=== PATIENT | female | born 1960 | race Caucasian/White ===

== ENCOUNTER 2020-04-13 09:56 | Inpatient (IN) | payer SELFPAY ==
[~2020-04-13] VITALS: Ht 167.6 cm; Wt 67.6 kg
[2020-04-13 10:03] VITALS: BP 133/90
[2020-04-13 10:43] LABS: BASO # 0.1 10*3/uL (0.0-0.1); BASO % 0.3 % (0.0-1.0); EOS % 0.2 % (1.0-4.0); LYMPH # 2.6 10*3/uL (1.3-4.4); LYMPH % 14.3 % (27.0-41.0); MEAN CELL VOLUME 87.2 fl (81.0-99.0); MEAN CORPUSCULAR HGB 29.8 pg (27.0-31.0); MEAN CORPUSCULAR HGB CONC 34.1 g/dl (33.0-37.0); MEAN PLATELET VOLUME 8.3 fl (9.6-12.3); MONO # 0.9 10*3/uL (0.1-1.0); NEUT # 14.7 10*3/uL (2.3-7.9); NEUT % 79.7 % (47.0-73.0); PLATELET COUNT AUTOMATED 262 10*3/uL (130-400); RED CELL DISTRI WIDTH 12.7 % (0-14.5); WHITE BLOOD COUNT 18.4 10*3/uL (4.8-10.8)
[2020-04-13 10:54] LABS: ACT PARTIAL THROMBO TIME 26.5 SECONDS (20.0-32.1)
[2020-04-13 11:03] LABS: ALBUMIN 3.7 gm/dl (3.1-4.5); ALKALINE PHOSPHATASE 88 U/L (45-117); BUN 8 mg/dl (7-24); CHLORIDE 101 mmol/L (98-107); CREATININE 0.79 mg/dL (0.55-1.02); SGOT/AST 40 IU/L (3-35); SGPT/ALT 33 U/L (12-78); SODIUM 133 mmol/L (136-145); TOTAL PROTEIN 6.8 gm/dL (6.4-8.2)
[2020-04-13 11:04] LABS: ETHYL ALCOHOL < 3.0 mg/dl (<3)
[2020-04-13 13:40] VITALS: BP 112/60
--- NOTE | 2020-04-13 13:40 | NUR ---
PATIENT ASSISTED TO THE BATHROOM
[2020-04-13 14:15] VITALS: BP 118/70
--- NOTE | 2020-04-13 14:15 | NUR ---
The assessment has been completed. MIRNA MANRIQUE Time: 1414 A 59 year old FEMALE admitted to under services of NATY RAZO DO. Pt. arrived via ambulatory from ER. Chief complaint: PT STATES GOING THROUGH ALCOHOL WITHDRAWAL.HAS BEEND RINKING FOR YEARS. STOPPED A COUPLE OF MONTHS AGO AND START BACK LAST MONTH DRINKING 24 BEERS A DAY. PT IS ANXIOUS. FEELING SHAKY, LAST DRINK AFTER MIDNIGHT.]\. MIRNA MANRIQUE
[2020-04-13 14:30] VITALS: BP 120/80
[2020-04-13] MEDS ORDERED: PROVENTIL HFA6.7 GM IH (14:33)
[2020-04-13] MEDS ORDERED: SERTRALINE HYD100 MG PO (14:34)
[2020-04-13] MEDS ORDERED: BUSPIRONE HCL30 MG PO (14:34)
[2020-04-13] MEDS ORDERED: ATARAX,VISTARIL50 MG PO (14:34)
[2020-04-13] MEDS ORDERED: LISINOPRIL20 MG PO (14:35)
[2020-04-13] MEDS ORDERED: ASPIRIN ADULT L81 M1 PO (14:35)
--- NOTE | 2020-04-13 14:57 | NUR ---
DR HORVATH NOTIFIED PTS MEDS ARE UP TO DATE.
--- NOTE | 2020-04-13 15:50 | NUR ---
PT REQUESTING NICOTINE PATCH. DR HORVATH STATES TO GIVE 21MG DOSE DAILY.
[2020-04-13 16:00] VITALS: BP 157/83
--- NOTE | 2020-04-13 17:24 | NUR ---
[facility] CALLED PER PT REQUEST FOR BREATHING TX.
--- NOTE | 2020-04-13 17:45 | NUR ---
I was requested to speak to by to ascertain the extent of treatement desired, for FABIOLA BENOIT. The patient, FABIOLA BENOIT, have an Advanced Directive. I met with to discuss the issue. appears to have an understanding of the issue, and the options available. Based on the preceding, I recommend that the patient have a resusitation status of . Pastoral Services will continue to follow this patient, to provide supportive care. HISSOM,MIRNA
--- NOTE | 2020-04-13 17:45 | NUR ---
DR HORVATH NOTIFIED OF LACTIC ACID OF 2.2
--- NOTE | 2020-04-13 18:35 | NUR ---
PT STATING SHE DOES NOT WANT TO WEAR HEART MONITOR.
--- NOTE | 2020-04-13 19:00 | NUR ---
ASSUMED CARE FOR THIS PT AT THIS TIME. PT RESTING QUEITLY IN BED W/EYES CLOSED. WHEEZING AND RHONCHI NOTED T/O LUNG LINDSEY. LABORED RESPS AT REST. BILATERAL HAND TREMORS. PT DENIES ANY S/S OF WITHDRAWAL. PT REMINDED OF NEED FOR URINE BEFORE MEDS CAN BE GIVEN. PT HAS NOT VOIDED OF YET SINCE ADMISSION. CALL LIGHT IN REACH.
[2020-04-13 20:00] VITALS: BP 150/64
[2020-04-14] VITALS: BP 114/74
[2020-04-14 00:41] LABS: BILIRUBIN Negative (Negative); BLOOD Negative (Negative); CLARITY Clear (Clear); COLOR Yellow (Yellow); GLUCOSE Negative (Negative); KETONE Negative (Negative); LEUKO ESTERASE Negative (Negative); NITRITE Negative (Negative); PH 5.5 (4.5-8.0); SPECIFIC GRAVITY <= 1.005 (1.001-1.030); UROBILINOGEN 0.2 E.U./dl (0.0-1.0)
[2020-04-14 00:53] LABS: URINE AMPHETAMINES < 1000 (1000ng/ml); URINE BARBITURATES < 200 (200ng/ml); URINE BENZODIAZEPINES < 200 (200ng/ml); URINE CANNABINOIDS (THC) < 50 (50ng/ml); URINE COCAINE < 300 (300ng/ml); URINE METHADONE < 300 (300ng/ml); URINE OPIATES < 300 (300ng/ml); URINE PHENCYCLIDINE < 25 (25ng/ml)
[2020-04-14 06:33] LABS: BASO % 0.2 % (0.0-1.0); HEMATOCRIT 35.5 % (37.0-47.0); LYMPH # 1.6 10*3/uL (1.3-4.4); LYMPH % 16.6 % (27.0-41.0); MEAN CELL VOLUME 89.6 fl (81.0-99.0); MEAN CORPUSCULAR HGB CONC 32.4 g/dl (33.0-37.0); MONO # 0.5 10*3/uL (0.1-1.0); MONO % 4.7 % (3.0-9.0); NEUT # 7.5 10*3/uL (2.3-7.9); NEUT % 77.8 % (47.0-73.0); PLATELET COUNT AUTOMATED 194 10*3/uL (130-400); RED BLOOD COUNT 3.96 10*6/uL (4.10-5.10); RED CELL DISTRI WIDTH 12.9 % (0-14.5); WHITE BLOOD COUNT 9.6 10*3/uL (4.8-10.8)
[2020-04-14 06:44] LABS: ALKALINE PHOSPHATASE 78 U/L (45-117); BUN 6 mg/dl (7-24); CHLORIDE 107 mmol/L (98-107); CHOLESTEROL 163 mg/dL (<200); CREATININE 0.56 mg/dL (0.55-1.02); HDL CHOLESTEROL 28 mg/dl (40-60); POTASSIUM 3.9 mmol/L (3.5-5.1); SGOT/AST 26 IU/L (3-35); SGPT/ALT 25 U/L (12-78); SODIUM 138 mmol/L (136-145); TOTAL PROTEIN 5.9 gm/dL (6.4-8.2); TRIGLYCERIDES 435 mg/dl (<150)
[2020-04-14 08:00] VITALS: BP 154/90
--- NOTE | 2020-04-14 09:00 | NUR ---
[employer] Supervisor in to talk to patient. Patient states lives at home with . There are no steps in the home. Physician: yuliana wilson Pharmacy: [facility] health services: none Patient's level of ADLs: INDEPENDENT Patient has working utilities: all working DME: none Follow-up physician's appointment after d/c: will be made by hospitalist nurse director upon discharge Does patient want to access PORTAL?: no Discharge plan discussed with patient, she states she lives at home with , she is independent in adls and ambulation, she states she will return home when discharged. educated her that Ambika from [facility] will give her some pamphlets regarding outpatient clinicals if she would choose to follow up with one, patient verbalized understanding, case management will follow. VIOLET ANDRADE
[2020-04-14 12:00] VITALS: BP 154/79
[2020-04-14 16:00] VITALS: BP 170/88
[2020-04-14 16:05] VITALS: BP 152/56
[2020-04-14 20:00] VITALS: BP 160/103; BP 160/88
[2020-04-15] VITALS (7 sets, daily range): BP systolic 138–178; BP diastolic 84–98
--- NOTE | 2020-04-15 03:17 | NUR ---
24 HR chart check completed.
[2020-04-15 06:20] LABS: BASO % 0.1 % (0.0-1.0); EOS % 0.1 % (1.0-4.0); LYMPH # 2.1 10*3/uL (1.3-4.4); LYMPH % 12.8 % (27.0-41.0); MEAN CELL VOLUME 88.5 fl (81.0-99.0); MEAN CORPUSCULAR HGB 29.2 pg (27.0-31.0); MEAN CORPUSCULAR HGB CONC 33.1 g/dl (33.0-37.0); MEAN PLATELET VOLUME 8.8 fl (9.6-12.3); MONO # 0.7 10*3/uL (0.1-1.0); MONO % 4.3 % (3.0-9.0); NEUT # 13.3 10*3/uL (2.3-7.9); NEUT % 82.1 % (47.0-73.0); PLATELET COUNT AUTOMATED 168 10*3/uL (130-400); RED BLOOD COUNT 4.07 10*6/uL (4.10-5.10); RED CELL DISTRI WIDTH 12.9 % (0-14.5); WHITE BLOOD COUNT 16.1 10*3/uL (4.8-10.8)
[2020-04-15 06:38] LABS: ALBUMIN 3.4 gm/dl (3.1-4.5); ALKALINE PHOSPHATASE 72 U/L (45-117); BUN 15 mg/dl (7-24); CHLORIDE 103 mmol/L (98-107); CREATININE 0.65 mg/dL (0.55-1.02); POTASSIUM 4.4 mmol/L (3.5-5.1); SGOT/AST 23 IU/L (3-35); SGPT/ALT 25 U/L (12-78); SODIUM 138 mmol/L (136-145); TOTAL PROTEIN 6.3 gm/dL (6.4-8.2)
--- NOTE | 2020-04-15 11:39 | NUR ---
[place] STAFF IN TO SEE PATIENT. PATIENT WAS PROVIDED A LIST OF AA MEETINGS IN HER LOCAL AREA ALONG WITH OTHER RESOURCES. FERCHO STEINER B.A. MANAGER BUSINESS
--- NOTE | 2020-04-15 14:41 | NUR ---
PATIENT RESTING IN BED. VOICES NO CONCERNS. VSS. DENIES ANY NEED AT THIS TIME. CALL LIGHT IN REACH.
--- NOTE | 2020-04-15 21:41 | NUR ---
PATIENT WHEEZING AND WOULD LIKE A TREATMENT. CALLED RESPIRATORY AND THEY WILL COME.
--- NOTE | 2020-04-15 22:46 | NUR ---
ATIVAN GIVEN PER ORDER FOR ANXIETY AND TREMORS WHEN HANDS EXTENDED. SEE MAR.
--- NOTE | 2020-04-15 23:40 | NUR ---
ATIVAN EFFECTIVE FOR ANXIETY PATIENT RESTING.
--- NOTE | 2020-04-15 23:53 | NUR ---
24 HR chart check completed.
[2020-04-16] VITALS: BP 152/73
--- NOTE | 2020-04-16 03:51 | NUR ---
SLEEPING NOT DISTRESS NOTED.
--- NOTE | 2020-04-16 07:00 | NUR ---
ARRIVED ON SHIFT, REPORT RECEIVED FROM OFFGOING NURSE, ASSUMED CARE OF PATIENT.
--- NOTE | 2020-04-16 07:45 | NUR ---
INTRODUCED SELF TO PATIENT, BED IN LOW POSITION WITH WHEEL LOCKS ENGAGED, SIDE RAILS UP X 2 FOR TURNING AND REPOSITIONING, CALL LIGHT WITHIN REACH, NO NEEDS VOICED AT THIS TIME.
[2020-04-16 08:21] LABS: BASO % 0.1 % (0.0-1.0); HEMATOCRIT 38.1 % (37.0-47.0); LYMPH # 1.6 10*3/uL (1.3-4.4); LYMPH % 10.4 % (27.0-41.0); MEAN CELL VOLUME 90.9 fl (81.0-99.0); MEAN CORPUSCULAR HGB 30.3 pg (27.0-31.0); MEAN CORPUSCULAR HGB CONC 33.3 g/dl (33.0-37.0); MEAN PLATELET VOLUME 8.9 fl (9.6-12.3); MONO # 0.5 10*3/uL (0.1-1.0); MONO % 3.5 % (3.0-9.0); NEUT # 12.8 10*3/uL (2.3-7.9); NEUT % 85.3 % (47.0-73.0); PLATELET COUNT AUTOMATED 162 10*3/uL (130-400); RED BLOOD COUNT 4.19 10*6/uL (4.10-5.10); RED CELL DISTRI WIDTH 13.3 % (0-14.5)
[2020-04-16 08:48] LABS: ALBUMIN 3.5 gm/dl (3.1-4.5); ALKALINE PHOSPHATASE 71 U/L (45-117); BUN 17 mg/dl (7-24); CHLORIDE 101 mmol/L (98-107); POTASSIUM 3.9 mmol/L (3.5-5.1); SGOT/AST 21 IU/L (3-35); SGPT/ALT 28 U/L (12-78); SODIUM 137 mmol/L (136-145); TOTAL PROTEIN 6.5 gm/dL (6.4-8.2)
--- NOTE | 2020-04-16 11:32 | NUR ---
Shift chart check completed.
[2020-04-16] MEDS ORDERED: PREDNISONE10 MG PO (12:08)
[2020-04-16] MEDS ORDERED: VITAMIN B-1100 M1 PO (12:08)
[2020-04-16] MEDS ORDERED: DOXYCYCLINE100 M3 PO (12:08)
[2020-04-16] MEDS ORDERED: Zestril,Prinivi40 MG PO (12:08)
--- NOTE | 2020-04-16 13:50 | NUR ---
Discharge instructions reviewed with patient/family. Patient receptive and verbalizes understanding. Follow-up care arranged. Written instructions given to patient/family, IV REMOVED, TELEMETRY UNIT ACCOUNTED FOR, REFUSED W/C FOR DISCHARGE. ANALIA ANDINO
== END 2020-04-16 13:50 | disposition home or self-care (01) | DRG 871 ==
LOC: ED 09:56 → EDHOLD 11:41 → 4E 11:41
PROVIDERS: Emergency Medicine; Student in an Organized Health Care Education/Training Program; ADMIT Student in an Organized Health Care Education/Training Program; ATTEND Student in an Organized Health Care Education/Training Program
DX: A41.9 Sepsis, unspecified organism (principal); J18.9 Pneumonia, unspecified organism; E87.1 Hypo-osmolality and hyponatremia; F10.230 Alcohol dependence with withdrawal, uncomplicated; J44.0 Chronic obstructive pulmonary disease with (acute) lower respiratory infection; J44.1 Chronic obstructive pulmonary disease with (acute) exacerbation; I10 Essential (primary) hypertension; J45.909 Unspecified asthma, uncomplicated; F41.9 Anxiety disorder, unspecified; D72.810 Lymphocytopenia; F17.210 Nicotine dependence, cigarettes, uncomplicated; R74.01 Elevation of levels of liver transaminase levels; Z82.3 Family history of stroke; Z82.49 Family history of ischemic heart disease and other diseases of the circulatory system; Z71.6 Tobacco abuse counseling; Z79.51 Long term (current) use of inhaled steroids

== ENCOUNTER 2021-08-24 20:12 | Inpatient (IN) | payer SELFPAY ==
[~2021-08-24] VITALS: Ht 168 cm; Wt 68.0 kg
[~2021-08-24 20:12] MED LIST: ASPIRIN ADULT L81 M1 PO; ATARAX,VISTARIL50 MG PO; BUSPIRONE HCL30 MG PO; DOXYCYCLINE100 M3 PO; LISINOPRIL20 MG PO; PREDNISONE10 MG PO; PROVENTIL HFA6.7 GM IH; SERTRALINE HYD100 MG PO; VITAMIN B-1100 M1 PO; Zestril,Prinivi40 MG PO
[2021-08-24] MEDS ORDERED: HYDROCHLOROTHIA25 M1 PO (20:29)
[2021-08-24 21:28] LABS: BASO % 0.2 % (0.0-1.0); LYMPH # 1.4 10*3/uL (1.3-4.4); RED CELL DISTRI WIDTH 13.1 % (0-14.5); WHITE BLOOD COUNT 17.6 10*3/uL (4.8-10.8)
[2021-08-24 21:44] LABS: ALKALINE PHOSPHATASE 106 U/L (45-117); BUN 6 mg/dl (7-24); POTASSIUM 3.7 mmol/L (3.5-5.1); SGOT/AST 50 IU/L (3-35); SGPT/ALT 41 U/L (12-78); TOTAL PROTEIN 7.2 gm/dL (6.4-8.2)
[2021-08-24 21:51] LABS: CHLORIDE 64 mmol/L (98-107); SODIUM 109 mmol/L (136-145)
[2021-08-24 22:24] LABS: LYMPH % 8.2 % (27.0-41.0); MEAN CELL VOLUME 82.9 fl (81.0-99.0); MEAN PLATELET VOLUME 8.7 fl (9.6-12.3); MONO # 0.7 10*3/uL (0.1-1.0); MONO % 3.9 % (3.0-9.0); NEUT # 15.2 10*3/uL (2.3-7.9); NEUT % 86.2 % (47.0-73.0); PLATELET COUNT AUTOMATED 335 10*3/uL (130-400); RED BLOOD COUNT 4.51 10*6/uL (4.10-5.10)
[2021-08-24 22:25] LABS: HEMATOCRIT 37.4 % (37.0-47.0); MEAN CORPUSCULAR HGB CONC 37.4 g/dl (33.0-37.0)
[2021-08-24 22:26] LABS: TOTAL CELLS COUNTED 100 #CELLS
[2021-08-24 22:27] LABS: PLATELET SUFFICIENCY NORMAL (NORMAL)
[2021-08-24 22:59] LABS: ABG BASE EXCESS 2.9 mmol/L (-2.0-2.0); ARTERIAL BLOOD GAS PH 7.477 (7.35-7.45)
[2021-08-24 23:10] VITALS: BP 130/74
[2021-08-25] VITALS (7 sets, daily range): BP systolic 132–172; BP diastolic 69–96
[2021-08-25 00:41] LABS: BILIRUBIN Negative (Negative); BLOOD 1+ (Negative); CLARITY Clear (Clear); COLOR Yellow (Yellow); GLUCOSE Negative (Negative); KETONE 2+ (Negative); LEUKO ESTERASE Negative (Negative); NITRITE Negative (Negative); PH 5.5 (4.5-8.0); SPECIFIC GRAVITY 1.015 (1.001-1.030); UROBILINOGEN 0.2 E.U./dl (0.0-1.0)
[2021-08-25 01:08] LABS: EPITHELIAL CELLS 16-20
[2021-08-25 01:09] LABS: WBC 0-2 wbc/hpf (0-5)
[2021-08-25 04:04] LABS: ALKALINE PHOSPHATASE 103 U/L (45-117); BUN 9 mg/dl (7-24); CREATININE 0.45 mg/dL (0.55-1.02); POTASSIUM 3.4 mmol/L (3.5-5.1); SGOT/AST 54 IU/L (3-35); SGPT/ALT 43 U/L (12-78); TOTAL PROTEIN 6.9 gm/dL (6.4-8.2)
[2021-08-25 04:10] LABS: THYROID STIM HORMONE (HS) 0.271 uIU/ml (0.358-4.75)
[2021-08-25 04:11] LABS: CHLORIDE 65 mmol/L (98-107); SODIUM 109 mmol/L (136-145)
[2021-08-25 04:36] LABS: HEMATOCRIT 36.7 % (37.0-47.0); MEAN CORPUSCULAR HGB 31.4 pg (27.0-31.0); MEAN PLATELET VOLUME 8.5 fl (9.6-12.3); PLATELET COUNT AUTOMATED 252 10*3/uL (130-400); RED BLOOD COUNT 4.37 10*6/uL (4.10-5.10); RED CELL DISTRI WIDTH 13.3 % (0-14.5); WHITE BLOOD COUNT 15.2 10*3/uL (4.8-10.8)
[2021-08-25 04:37] LABS: MANUAL DIFF REFLEX YES
[2021-08-25 04:38] LABS: MEAN CORPUSCULAR HGB CONC 37.3 g/dl (33.0-37.0)
[2021-08-25 04:45] LABS: PLATELET SUFFICIENCY NORMAL (NORMAL); TOTAL CELLS COUNTED 100 #CELLS
[2021-08-25 07:53] LABS: VITAMIN D, 25-HYDROXY 17.9 ng/mL (30-100)
[2021-08-25 12:45] LABS: BUN 12 mg/dl (7-24); CREATININE 0.55 mg/dL (0.55-1.02); POTASSIUM 4.2 mmol/L (3.5-5.1)
[2021-08-25 12:51] LABS: CHLORIDE 72 mmol/L (98-107); SODIUM 114 mmol/L (136-145)
[2021-08-25 19:02] LABS: BUN 14 mg/dl (7-24); CHLORIDE 78 mmol/L (98-107); CREATININE 0.49 mg/dL (0.55-1.02); POTASSIUM 4.1 mmol/L (3.5-5.1)
[2021-08-25 19:06] LABS: SODIUM 117 mmol/L (136-145)
[2021-08-26] VITALS: BP 157/83
[2021-08-26 00:49] LABS: BUN 13 mg/dl (7-24); CHLORIDE 82 mmol/L (98-107); CREATININE 0.45 mg/dL (0.55-1.02); POTASSIUM 3.8 mmol/L (3.5-5.1); SODIUM 121 mmol/L (136-145)
[2021-08-26 06:08] LABS: BUN 12 mg/dl (7-24); CHLORIDE 84 mmol/L (98-107); CREATININE 0.47 mg/dL (0.55-1.02); POTASSIUM 3.9 mmol/L (3.5-5.1); SODIUM 123 mmol/L (136-145)
[2021-08-26 06:20] LABS: HEMATOCRIT 35.1 % (37.0-47.0); MEAN CELL VOLUME 86.5 fl (81.0-99.0); MEAN CORPUSCULAR HGB 30.5 pg (27.0-31.0); MEAN CORPUSCULAR HGB CONC 35.3 g/dl (33.0-37.0); PLATELET COUNT AUTOMATED 236 10*3/uL (130-400); RED BLOOD COUNT 4.06 10*6/uL (4.10-5.10); WHITE BLOOD COUNT 14.2 10*3/uL (4.8-10.8)
[2021-08-26 06:36] LABS: MANUAL DIFF REFLEX YES
[2021-08-26 07:04] LABS: POLYCHROMASIA SLIGHT; TOTAL CELLS COUNTED 100 #CELLS
[2021-08-26 07:05] LABS: PLATELET SUFFICIENCY NORMAL (NORMAL)
[2021-08-26 08:00] VITALS: BP 144/99
[2021-08-26 12:00] VITALS: BP 133/94
[2021-08-26 16:00] VITALS: BP 130/86
[2021-08-26 20:00] VITALS: BP 160/90
[2021-08-27] VITALS: BP 154/77
[2021-08-27 06:04] LABS: ALKALINE PHOSPHATASE 72 U/L (45-117); BUN 12 mg/dl (7-24); CHLORIDE 88 mmol/L (98-107); CREATININE 0.45 mg/dL (0.55-1.02); POTASSIUM 3.8 mmol/L (3.5-5.1); SGOT/AST 29 IU/L (3-35); SGPT/ALT 36 U/L (12-78); SODIUM 126 mmol/L (136-145); TOTAL PROTEIN 6.3 gm/dL (6.4-8.2)
[2021-08-27 06:15] LABS: HEMATOCRIT 35.8 % (37.0-47.0); MEAN CELL VOLUME 88.8 fl (81.0-99.0); MEAN CORPUSCULAR HGB 30.3 pg (27.0-31.0); MEAN CORPUSCULAR HGB CONC 34.1 g/dl (33.0-37.0); MEAN PLATELET VOLUME 8.8 fl (9.6-12.3); PLATELET COUNT AUTOMATED 245 10*3/uL (130-400); RED BLOOD COUNT 4.03 10*6/uL (4.10-5.10); RED CELL DISTRI WIDTH 14.4 % (0-14.5); WHITE BLOOD COUNT 17.5 10*3/uL (4.8-10.8)
[2021-08-27 06:34] LABS: MANUAL DIFF REFLEX YES
[2021-08-27 07:10] LABS: PLATELET SUFFICIENCY NORMAL (NORMAL); TOTAL CELLS COUNTED 100 #CELLS; TOXIC GRANULATION SLIGHT; VACUOLATION OF NEUTROPHILS SLIGHT
[2021-08-27 07:11] LABS: POLYCHROMASIA SLIGHT
[2021-08-27 08:00] VITALS: BP 168/72
[2021-08-27 12:00] VITALS: BP 137/73
[2021-08-27 16:00] VITALS: BP 159/76
[2021-08-27 20:00] VITALS: BP 173/83
[2021-08-28] VITALS: BP 150/79
[2021-08-28 05:31] VITALS: BP 126/72
[2021-08-28 06:03] LABS: BUN 8 mg/dl (7-24); CHLORIDE 92 mmol/L (98-107); POTASSIUM 3.6 mmol/L (3.5-5.1); SODIUM 131 mmol/L (136-145)
[2021-08-28 06:04] LABS: CREATININE 0.43 mg/dL (0.55-1.02)
[2021-08-28 06:29] LABS: BASO % 0.1 % (0.0-1.0); HEMATOCRIT 34.6 % (37.0-47.0); LYMPH # 1.1 10*3/uL (1.3-4.4); MEAN CELL VOLUME 90.8 fl (81.0-99.0); MEAN CORPUSCULAR HGB 30.7 pg (27.0-31.0); MEAN CORPUSCULAR HGB CONC 33.8 g/dl (33.0-37.0); MEAN PLATELET VOLUME 8.7 fl (9.6-12.3); MONO # 0.9 10*3/uL (0.1-1.0); MONO % 6.1 % (3.0-9.0); NEUT # 11.9 10*3/uL (2.3-7.9); NEUT % 84.9 % (47.0-73.0); PLATELET COUNT AUTOMATED 221 10*3/uL (130-400); RED BLOOD COUNT 3.81 10*6/uL (4.10-5.10); RED CELL DISTRI WIDTH 14.3 % (0-14.5)
[2021-08-28 08:00] VITALS: BP 171/77
[2021-08-28 12:00] VITALS: BP 193/92
[2021-08-28] MEDS ORDERED: MUCINEX ER600 MG PO (13:51)
[2021-08-28] MEDS ORDERED: PREDNISONE10 MG PO (13:51)
[2021-08-28] MEDS ORDERED: VITAMIN D3125 MC1 PO (13:51)
[2021-08-28] MEDS ORDERED: ZITHROMAX250 MG PO (13:52)
[2021-08-28] MEDS ORDERED: NORVASC5 MG PO (13:57)
== END 2021-08-28 16:00 | disposition home or self-care (01) | DRG 871 ==
LOC: ED 20:12 → EDHOLD 22:39 → 4E 22:39
PROVIDERS: Internal Medicine; Physician Assistant; Student in an Organized Health Care Education/Training Program; ADMIT Student in an Organized Health Care Education/Training Program; ATTEND Student in an Organized Health Care Education/Training Program
DX: A41.9 Sepsis, unspecified organism (principal); J18.9 Pneumonia, unspecified organism; J96.01 Acute respiratory failure with hypoxia; E43 Unspecified severe protein-calorie malnutrition; J44.1 Chronic obstructive pulmonary disease with (acute) exacerbation; E87.1 Hypo-osmolality and hyponatremia; E87.2 Acidosis; J44.0 Chronic obstructive pulmonary disease with (acute) lower respiratory infection; K52.9 Noninfective gastroenteritis and colitis, unspecified; R65.20 Severe sepsis without septic shock; F17.210 Nicotine dependence, cigarettes, uncomplicated; E87.8 Other disorders of electrolyte and fluid balance, not elsewhere classified; I10 Essential (primary) hypertension; F10.10 Alcohol abuse, uncomplicated; Z82.49 Family history of ischemic heart disease and other diseases of the circulatory system; Z71.6 Tobacco abuse counseling; Z79.82 Long term (current) use of aspirin; Z79.51 Long term (current) use of inhaled steroids; Z79.899 Other long term (current) drug therapy